=== PATIENT | female | born 1995 | race Caucasian/White ===

== ENCOUNTER 2017-10-14 10:30 | Emergency (ER) | payer SELFPAY ==
[2017-10-14] MEDS: SILVER SULFADIAZINE 1% 25 GM CR TOP (11:42)
[2017-10-14] MEDS: DIPHTH/TET/ACEL PERTUSS (ADULT) 0.5 ML VIAL IM* (11:42)
[2017-10-14] MEDS: CEPHALEXIN 500 MG CAP PO (11:43)
== END 2017-10-14 12:27 | disposition home or self-care (01) ==
LOC: FTE 12:27
DX: T24.211A Burn of second degree of right thigh, initial encounter (principal); T24.212A Burn of second degree of left thigh, initial encounter; X10.2XXA Contact with fats and cooking oils, initial encounter; Y92.89 Other specified places as the place of occurrence of the external cause
CPT/HCPCS: 16020; 90471; 90715; 99284-25